=== PATIENT | male | born 1990 | race African-American/Black ===

== ENCOUNTER 2023-01-04 20:16 | Emergency (ER) | payer MEDICAID, OTHER ==
[~2023-01-04] VITALS: Ht 172.7 cm; Wt 91.0 kg
[2023-01-05] MEDS ORDERED: ACETAMINOPHEN 325 MG TAB PO ONE (01:15)
[2023-01-05 01:57] VITALS: BP 133/79; PULSE 99; RESP 18; O2SAT 96
[2023-01-05 02:04] LABS: Basophils # (auto) 0.1 10 ^3/uL (0-0.2); Basophils % (auto) 0.6 % (0.0-2.0); Eosinophils # (auto) 0.6 10 ^3/uL (0-0.8); Eosinophils % (auto) 5.7 % (0.0-7.0); Hematocrit 42.3 % (41.0-53.0); Hemoglobin 14.1 g/dL (13.5-17.5); Lymphocytes # (auto) 2.1 10 ^3/uL (0.4-5.4); Lymphocytes % (auto) 20.2 % (10.0-50.0); Mean Corpuscular Hemoglobin 32.8 pg (28.0-32.0); Mean Corpuscular Hgb Conc. 33.3 g/dL (32.0-36.0); Mean Corpuscular Volume 98.4 fL (80.0-100.0); Monocytes # (auto) 0.9 10 ^3/uL (0-1.3); Neutrophils # (auto) 6.6 10 ^3/uL (1.6-8.6); Neutrophils % (auto) 64.5 % (37.0-80.0); Nucleated Red Blood Cells % 0.1 %; Red Cell Distribution Width 14.3 % (11.8-14.3); White Blood Cell 10.3 10^3/uL (4.4-10.8)
[2023-01-05 02:06] LABS: Alanine Aminotransferase 22 U/L (7-40); Albumin 4.1 g/dL (3.2-4.8); Alkaline Phosphatase 63 U/L (46-116); Anion Gap 6.2 (5-15); Aspartate Aminotransferase 13 U/L (13-40); Calcium 8.8 mg/dL (8.7-10.4); Carbon Dioxide 25.8 mmol/L (20-30); Chloride 105 mmol/L (98-107); Glucose 103 mg/dL (74-106); Sodium 137 mmol/L (136-145)
[2023-01-05 02:07] LABS: Bilirubin, Total 0.4 mg/dL (0.2-1.0); Total Protein 7.5 g/dL (5.7-8.2)
[2023-01-05 02:09] LABS: BUN/Creatinine Ratio 6.5 (10.0-20.0); Blood Urea Nitrogen < 5 mg/dL (9-23)
[2023-01-05] MEDS ORDERED: HYDROcodone-ACET 5/325MG TAB PO ONE (04:45)
[2023-01-05] MEDS ORDERED: BACDST PO (09:04)
[2023-01-05] MEDS ORDERED: CLIN300C70 PO (09:04)
== END 2023-01-05 06:34 | disposition home or self-care (01) ==
LOC: EDBD 20:16 → ER 20:20
DX: M79.605 Pain in left leg (principal); M79.89 Other specified soft tissue disorders; Z85.9 Personal history of malignant neoplasm, unspecified
CPT/HCPCS: 36415; 73590; 80053; 85025; 93971

== ENCOUNTER 2023-01-05 07:42 | Emergency (ER) | payer MEDICAID ==
[~2023-01-05] VITALS: Ht 175.3 cm; Wt 87.7 kg
[2023-01-05 08:50] VITALS: BP 110/73; PULSE 99; RESP 19; TEMP 97.9; O2SAT 98
[2023-01-05] MEDS ORDERED: HYDROcodone-ACET 5/325MG TAB PO ONE (09:00)
[2023-01-05] MEDS ORDERED: cefTRIAXone SOD 1,000 MG VL IM ONE (09:00)
[2023-01-05] MEDS ORDERED: BACDST PO (09:04)
[2023-01-05] MEDS ORDERED: CLIN300C70 PO (09:04)
[2023-01-05] MEDS ORDERED: LIDOCAINE 1% HCL (LOCAL ANESTH.) INJ 20ML MDV ID ONE (09:30)
== END 2023-01-05 08:54 | disposition home or self-care (01) ==
LOC: ER 07:42
DX: L03.116 Cellulitis of left lower limb (principal); R59.1 Generalized enlarged lymph nodes
CPT/HCPCS: 96372; 99283; J0696; J2001